=== PATIENT | female | born 1985 | race Caucasian/White ===

== ENCOUNTER 2020-12-06 16:32 | Emergency (ER) | payer OTHER ==
[~2020-12-06 16:32] MED LIST: METRONIDAZOLE500 MG PO
[2020-12-06] MEDS ORDERED: PEPCID AC20 MG PO (19:22)
[2020-12-06] MEDS ORDERED: BENADRYL25 MG PO (19:22)
[2020-12-06] MEDS ORDERED: CEPHALEXIN500 MG PO (19:22)
== END 2020-12-06 19:38 | disposition home or self-care (01) ==
LOC: FER 16:32
DX: S80.262A Insect bite (nonvenomous), left knee, initial encounter (principal); F17.210 Nicotine dependence, cigarettes, uncomplicated; Z88.8 Allergy status to other drugs, medicaments and biological substances; W57.XXXA Bitten or stung by nonvenomous insect and other nonvenomous arthropods, initial encounter
CPT/HCPCS: 99281

== ENCOUNTER → 2021-02-04 | Day surgery (SDC) | payer OTHER ==
[~2021-02-04] VITALS: Ht 152.4 cm; Wt 88.5 kg
[~2021-02-04] MED LIST changes: +BENADRYL25 MG PO; +CEPHALEXIN500 MG PO; +KETOROLAC TROME10 MG PO; +NORCO 5-325 TA1 EACH PO; +PEPCID AC20 MG PO
[2021-02-04 11:29] LABS: HCG (URINE) SCREEN NEGATIVE (NEGATIVE)
[2021-02-04 12:10] LABS: HCT 41.7 % (37.0-47.0); HGB 13.7 g/dl (12.5-16.0); MCH 33.9 pg (25.0-31.0); MCHC 32.9 g/dL (32.0-36.0); MCV 103.2 fL (78.0-100.0); RBC 4.04 M/uL (4.20-5.40); RDW 13.2 % (11.5-14.0); WBC 6.9 K/uL (4.0-10.5)
== END | disposition home or self-care (01) ==
LOC: FAS 10:07
PROVIDERS: Specialist
DX: N72 Inflammatory disease of cervix uteri (principal); N92.1 Excessive and frequent menstruation with irregular cycle; Z20.822 Contact with and (suspected) exposure to COVID-19; R00.1 Bradycardia, unspecified; F32.9 Major depressive disorder, single episode, unspecified; F41.9 Anxiety disorder, unspecified; J45.909 Unspecified asthma, uncomplicated; Z68.38 Body mass index [BMI] 38.0-38.9, adult; F17.210 Nicotine dependence, cigarettes, uncomplicated; Z98.51 Tubal ligation status; Z88.8 Allergy status to other drugs, medicaments and biological substances; R00.0 Tachycardia, unspecified
CPT/HCPCS: 36415; 84703; J0690; J1100; J1885; J2001; J2250; J2405; J2704; J3010; J7120

== ENCOUNTER 2021-09-12 08:08 | Emergency (ER) | payer OTHER | END 2021-09-12 11:18 | disposition home or self-care (01) | LOC: FER 08:08 | DX: S43.52XA Sprain of left acromioclavicular joint, initial encounter (principal); S80.02XA Contusion of left knee, initial encounter; J45.909 Unspecified asthma, uncomplicated; Z88.8 Allergy status to other drugs, medicaments and biological substances; W01.0XXA Fall on same level from slipping, tripping and stumbling without subsequent striking against object, initial encounter; Y92.481 Parking lot as the place of occurrence of the external cause; Y99.0 Civilian activity done for income or pay | CPT/HCPCS: 73560 ==

== ENCOUNTER → 2021-09-27 | Day surgery (SDC) | payer OTHER ==
[~2021-09-27] VITALS: Ht 152.4 cm; Wt 96.2 kg
[2021-09-27 08:00] LABS: HCG (URINE) SCREEN NEGATIVE (NEGATIVE)
[2021-09-27 08:12] LABS: HCT 41.5 % (37.0-47.0); HGB 13.6 g/dl (12.5-16.0); MCH 33.4 pg (25.0-31.0); MCHC 32.8 g/dL (32.0-36.0); MPV 10.4 fL (6.0-9.5); RBC 4.07 M/uL (4.20-5.40); RDW 13.4 % (11.5-14.0); WBC 7.2 K/uL (4.0-10.5)
[2021-09-27 08:50] LABS: ALBUMIN 3.4 g/dL (3.4-5.0); BILIRUBIN - TOTAL 0.6 mg/dL (0.2-1.0); BUN/CREAT RATIO (CALC) 18.5 RATIO; CREATININE 0.81 mg/dL (0.51-0.95); GLOBULIN (CALCULATION) 3.6 g/dL; POTASSIUM 4.4 mmol/L (3.5-5.1)
== END | disposition home or self-care (01) ==
LOC: FAS 07:38
PROVIDERS: Orthopaedic Surgery
DX: S83.512A Sprain of anterior cruciate ligament of left knee, initial encounter (principal); M25.862 Other specified joint disorders, left knee; X58.XXXA Exposure to other specified factors, initial encounter
CPT/HCPCS: 36415; 80053; 84703; C1713; C1762; J0690; J1100; J1170; J1885; J2250; J2405; J2704; J2795; J3010; J7120